=== PATIENT | male | born 1970 | race Two or more races ===

== ENCOUNTER 2023-03-04 03:59 | Emergency (ER) | payer OTHER ==
[~2023-03-04] VITALS: Ht 165.1 cm; Wt 86.2 kg
[2023-03-04] MEDS ORDERED: DOLOGESIC-DF 51 EACH PO (05:25)
[2023-03-04] MEDS ORDERED: PHENAGIL CH TA1 EACH PO (05:25)
[2023-03-04] MEDS ORDERED: ZYNCOF 20-400120 ML PO (05:25)
== END 2023-03-04 05:38 ==
LOC: ER 03:59
DX: B34.9 Viral infection, unspecified (principal); J10.1 Influenza due to other identified influenza virus with other respiratory manifestations; Z20.822 Contact with and (suspected) exposure to COVID-19